=== PATIENT | female | born 1950 | race Caucasian/White ===

== ENCOUNTER 2023-02-11 13:33 | Emergency (ER) | payer MEDICARE, SELFPAY ==
[2023-02-11] VITALS (7 sets, daily range): BP systolic 161–188; BP diastolic 75–90; PULSE 55–82; RESP 16–18; TEMP 36.8–37.1; O2SAT 96–100
--- NOTE | ~2023-02-11 | XR_ITS ---
XR elbow RT 2V 02/11/2023 14:04 Indication: Right elbow pain after fall Procedure: 2 views of the right elbow Comparison: No prior studies for comparison. Findings: There is a posterior elbow dislocation there is a large radial head fracture fragment. Ther e is a fracture deformity of the posterior aspect of the capitellum. Moderate soft tissue swelling. N o definite ulnar fracture. Impression: 1: Posterior elbow dislocation with fractures of the distal aspect of the humerus and radial head. Reviewed, dictated and finalized at location A. Impression: 1: Posterior elbow dislocation with fractures of the distal aspect of the humer us and radial head.
--- NOTE | ~2023-02-11 | XR_ITS ---
XR elbow RT 2V DATE: 02/11/2023 14:51 INDICATION: Fracture/dislocation reduction TECHNIQUE: Postoperative reduction two-view examination COMPARISON: 02/11/2023 right elbow FINDINGS: There is reduction of the posterior dislocation at the elbow joint. There is a large anteri harry displaced bony fragment possibly from capitellum and/or radial head. CT imaging would be helpful for more definitive evaluation. IMPRESSION: Limited examination spelled reduction of posterior dislocation Large anterior displaced fracture fragment from the capitellum and/or radial head; consider CT for mo re definitive evaluation Reviewed, dictated and finalized at location A. IMPRESSION: Limited examination spelled reduction of posterior dislocation Large anterior displaced fracture fragment from the capitellum and/or radial he ad; consider CT for more definitive evaluation
--- NOTE | 2023-02-11 14:16 | ED.FALL ---
HPI - Fall General Chief Complaint: Fall Stated Complaint: glf - rt arm pain Time Seen by Provider: 02/11/23 13:34 History of Present Illness HPI Narrative: 72-year-old female present to the emergency department for evaluation of right elbow pain after having a ground-level fall. Patient states she fell while walking on a porch. Patient denies striking head denies loss of consciousness. Patient does have some right elbow pain Related Data Home Medications Medication Instructions Recorded Confirmed chlorthalidone 25 mg tablet 12.5 mg PO DAILY 02/06/23 02/06/23 cholecalciferol (vitamin D3) 50 50 mcg PO BID 02/06/23 02/06/23 mcg (2,000 unit) capsule (Vitamin D3) escitalopram oxalate 5 mg tablet 5 mg PO DAILY 02/06/23 02/06/23 esomeprazole magnesium 40 mg 40 mg PO DAILY 02/06/23 02/06/23 capsule,delayed release glucosamine-chondroitin 250 mg-200 1 tablet PO DAILY 02/06/23 02/06/23 mg tablet (Osteo Bi-Flex) insulin lispro 100 unit/mL See Rx Instructions .Route .COMPLEX 02/06/23 02/06/23 subcutaneous solution (Humalog U-100 Insulin) losartan 100 mg tablet 100 mg PO DAILY 02/06/23 02/06/23 nifedipine 30 mg tablet,extended 30 mg PO DAILY 02/06/23 02/06/23 release 24 hr rosuvastatin 40 mg tablet 40 mg PO DAILY 02/06/23 02/06/23 vitamin B complex 1 cap PO DAILY 02/06/23 02/06/23 vitamins A,C,B-sfec-shdrqi 2,148 1 tablet PO BID 02/06/23 02/06/23 mcg-113 mg-45 mg-17.4 mg tablet Allergies Allergy/AdvReac Type Severity Reaction Status Date / Time exenatide [From Byetta] Allergy Vomiting Verified 02/11/23 13:37 metformin Allergy Cough Verified 02/11/23 13:37 Review of Systems Review of Systems: All systems reviewed & are unremarkable except as noted in HPI and below PMFSH Social History Social History Smoking status: Never smoker Alcohol intake: current Drinks per week: 1 Substance use type: does not use Living arrangements: other Additional living arrangements comments: With Exam Narrative: APPEARANCE: Well appearing, no pain, no distress, well-nourished. HEAD: normocephalic, atraumatic. EYES: PERRLA/EOMI, conjunctivae clear. NOSE: Normal no drainage NECK: Supple. No adenopathy, no masses. RESPIRATORY: Airway patent, respirations nonlabored. Clear to auscultation bilaterally, no rales, rhonchi, wheezing. CARDIOVASCULAR: Regular rate and rhythm without murmurs rubs or gallops. ABDOMINAL: Soft, nontender, nondistended, normal bowel sounds MUSCULOSKELETAL: Right elbow deformity, tenderness to palpation. Neurovascular intact. NEURO: Alert. Cranial nerves II through XII intact. Grossly intact SKIN: Warm, dry. Normal Color Course Course Emergency Course: 72-year-old female presented ED for evaluation after having a ground-level fall. X-ray did show a radial head fracture and a right elbow dislocation. Patient was sedated with propofol and elbow was successfully reduced. Patient had confirming x-rays. Patient was placed in initial immobilizer and provided outpatient follow-up with orthopedics. All question concerns were addressed. Patient did feel improved with treatment. Vital Signs Vital signs: Vital Signs Temperature 98.7 F 02/11/23 13:32 Pulse Rate 55 L 02/11/23 13:32 Respiratory Rate 18 02/11/23 13:32 Blood Pressure 165/90 H 02/11/23 13:32 Pulse Oximetry 98 02/11/23 13:32 Oxygen Delivery Room Air 02/11/23 13:32 Temperature 98.3 F 02/11/23 14:50 Pulse Rate 64 02/11/23 15:20 Respiratory Rate 17 02/11/23 15:20 Blood Pressure 161/77 H 02/11/23 15:20 Pulse Oximetry 96 02/11/23 15:20 Oxygen Delivery Room Air 02/11/23 15:05 Oxygen Flow Rate 2 02/11/23 14:45 Procedures Orthopedic Joint Reduction Joint #1: Orthopedic Joint Reduction Time: 14:45 Time Out Performed: Yes Side: right Joint Reduction Location: elbow Analgesia: procedural sedation Pre-Procedure Neuro Vascular Exam:
[2023-02-11] MEDS: PROPOFOL IV EMULSION 200 MG/20 ML VIAL 60 MG IV PUSH (14:35)
== END 2023-02-11 15:24 | disposition home or self-care (01) ==
PROVIDERS: Emergency Provider Emergency Medicine; PCP Internal Medicine
DX: S52.121A Displaced fracture of head of right radius, initial encounter for closed fracture (principal); S42.491A Other displaced fracture of lower end of right humerus, initial encounter for closed fracture; Z79.4 Long term (current) use of insulin; W18.30XA Fall on same level, unspecified, initial encounter
CPT/HCPCS: 24600; 73070; 99285; J2704

== ENCOUNTER 2023-03-19 00:54 | Day surgery (SDC) | payer MEDICARE, SELFPAY ==
[2023-02-06 11:38] VITALS: BMI 32.8
--- NOTE | 2023-03-05 14:59 | PC.NURSE ---
verified with pt new date and time of procedure. pt denies any changes in medications or medical history since last PAT call. pt stated that she is to have surgery on her arm this week and will speak with him to make sure he is ok with her having the Colonoscopy performed.
--- NOTE | 2023-03-16 16:11 | PM.HPGS ---
History of Present Illness History of Present Illness Consent: Risks, benefits, and alternatives have been discussed and questions answered. Patient agrees to proceed with procedure. Chief complaint: Hx of colon polyps Narrative: Kirsten Best is a 72 year old female Who was referred for colon cancer screening. She has a history of polyps. Her primary care provider has referred her several times in last 15 months. for family members on her father's side had colon cancer, 3 of which have perished. Review of Systems Review of Systems: All systems reviewed & are unremarkable except as noted in HPI and below PMFSH Social History Social History Smoking status: Never smoker Alcohol intake: current Drinks per week: 1 Substance use type: does not use Living arrangements: other Additional living arrangements comments: With Meds Home Medications and Allergies Home Medications Medication Instructions Recorded Confirmed Type chlorthalidone 25 mg tablet 12.5 mg PO DAILY 02/06/23 03/19/23 History cholecalciferol (vitamin D3) 50 50 mcg PO BID 02/06/23 03/19/23 History mcg (2,000 unit) capsule (Vitamin D3) escitalopram oxalate 5 mg tablet 5 mg PO DAILY 02/06/23 03/19/23 History esomeprazole magnesium 40 mg 40 mg PO DAILY 02/06/23 03/19/23 History capsule,delayed release glucosamine-chondroitin 250 mg-200 1 tablet PO DAILY 02/06/23 03/19/23 History mg tablet (Osteo Bi-Flex) insulin lispro 100 unit/mL See Rx Instructions .Route .COMPLEX 02/06/23 03/19/23 History subcutaneous solution (Humalog U-100 Insulin) losartan 100 mg tablet 100 mg PO DAILY 02/06/23 03/19/23 History nifedipine 30 mg tablet,extended 30 mg PO DAILY 02/06/23 03/19/23 History release 24 hr rosuvastatin 40 mg tablet 40 mg PO DAILY 02/06/23 03/19/23 History vitamin B complex 1 cap PO DAILY 02/06/23 03/19/23 History vitamins A,C,H-aaba-sqcytf 2,148 1 tablet PO BID 02/06/23 03/19/23 History mcg-113 mg-45 mg-17.4 mg tablet Allergies Allergy/AdvReac Type Severity Reaction Status Date / Time exenatide [From Byetta] Allergy Vomiting Verified 03/19/23 07:59 metformin Allergy Cough Verified 03/19/23 07:59 Exam Const: General: alert Orientation/consciousness: patient oriented x3 Resp: Auscultation: clear to auscultation bilaterally Cardio: Rate: regular rate Rhythm: regular rhythm GI: GI Palp: Yes Soft to palpation and No Tenderness to palpation present (GI) Neuro: General: patient oriented x3 Assessment and Plan Assessment and plan (1) Colon cancer screening: Code(s): Z12.11 - Encounter for screening for malignant neoplasm of colon Status: Acute Assessment and Plan: Colonoscopy with possible biopsy or polypectomy or cautery or injection of substances.
--- NOTE | 2023-03-19 08:02 | SUR.PREOP ---
blood glucose 229 per pt dexcom
[2023-03-19 08:03] VITALS: BP 156/79; PULSE 85; RESP 18; TEMP 36.2; O2SAT 99
[2023-03-19] MEDS: LACTATED RINGERS 1,000 ML 150 ML IV CONT (08:12)
--- NOTE | 2023-03-19 08:43 | WPDANESEPPF ---
Anes - Initial Pre Proc Eval Procedure: Operation Date: 03/19/23 09:00 Proposed Procedures p Colonoscopy - Yousuf Andino MD Date/Time: 03/19/23 08:43 Surgeon: Yousuf Andino MD Pre Op Diagnosis: Hx of colon polyps Patient Data Age: 72 Gender: F Height: 1.73 m Weight: 96 kg Last Vital Signs Temp 97.1 F L 03/19/23 08:03 Pulse 85 03/19/23 08:03 Resp 18 03/19/23 08:03 BP 156/79 H 03/19/23 08:03 Pulse Ox 99 03/19/23 08:03 O2 Del Method Room Air 03/19/23 08:03 Allergies Allergy/AdvReac Type Severity Reaction Status Date / Time exenatide [From Byetta] Allergy Vomiting Verified 03/19/23 07:59 metformin Allergy Cough Verified 03/19/23 07:59 Home Medications Medication Instructions Recorded Confirmed Type chlorthalidone 25 mg tablet 12.5 mg PO DAILY 02/06/23 03/19/23 History cholecalciferol (vitamin D3) 50 50 mcg PO BID 02/06/23 03/19/23 History mcg (2,000 unit) capsule (Vitamin D3) escitalopram oxalate 5 mg tablet 5 mg PO DAILY 02/06/23 03/19/23 History esomeprazole magnesium 40 mg 40 mg PO DAILY 02/06/23 03/19/23 History capsule,delayed release glucosamine-chondroitin 250 mg-200 1 tablet PO DAILY 02/06/23 03/19/23 History mg tablet (Osteo Bi-Flex) insulin lispro 100 unit/mL See Rx Instructions .Route .COMPLEX 02/06/23 03/19/23 History subcutaneous solution (Humalog U-100 Insulin) losartan 100 mg tablet 100 mg PO DAILY 02/06/23 03/19/23 History nifedipine 30 mg tablet,extended 30 mg PO DAILY 02/06/23 03/19/23 History release 24 hr rosuvastatin 40 mg tablet 40 mg PO DAILY 02/06/23 03/19/23 History vitamin B complex 1 cap PO DAILY 02/06/23 03/19/23 History vitamins A,C,E-wsfq-ttebld 2,148 1 tablet PO BID 02/06/23 03/19/23 History mcg-113 mg-45 mg-17.4 mg tablet Patient hx anesthesia problems: none Family hx anesthesia problems: none Results Review: All pre-operative results and documents have been reviewed as part of the pre-operative evaluation. [facility] Social History Social History Smoking status: Never smoker Alcohol intake: current Drinks per week: 1 Substance use type: does not use Living arrangements: other Additional living arrangements comments: With Julien Montesinos Final PreProcedure Day of Procedure 03/19/23 08:43 Patient weight: obese Heart: regular rate and rhythm Lungs: clear to auscultation Airway: Mallampati scale class II Neurological: alert and oriented Last oral intake: >/= 8 hours ASA classification: III Emergent: no Anesthetic plan: proceed Anesthesia type and monitoring: general GIVS and standard monitoring Results Review: All pre-operative results and documents have been reviewed as part of the pre-operative evaluation. Informed Consent: The patient's anesthetic plan and its attendant risks and benefits were discussed with the patient/family/POA. Questions were solicited and answers provided to the satisfaction of the patient/family/POA.
[2023-03-19] MEDS: SIMETHICONE ORAL SUSPENSION 20 MG/0.3 ML 30 ML BOTTLE 0.6 ML IRRIGATION (09:03)
[2023-03-19 09:09] VITALS: BP 114/56; PULSE 60; RESP 19; O2SAT 95
[2023-03-19 09:19] VITALS: BP 110/54; PULSE 56; RESP 22; O2SAT 97
[2023-03-19 09:27] LABS: Glucose Point of Care 180 mg/dl (65-105)
[2023-03-19 09:29] VITALS: BP 124/64; PULSE 64; RESP 19; O2SAT 97
== END 2023-03-19 09:50 | disposition home or self-care (01) ==
PROVIDERS: PCP Internal Medicine; Visit Provider Internal Medicine Gastroenterology
PROC: 0DJD8ZZ Inspection of Lower Intestinal Tract, Via Natural or Artificial Opening Endoscopic (ICD-10-PCS; CPT 45378; principal; 2023-03-19 09:00)
DX: Z12.11 Encounter for screening for malignant neoplasm of colon (principal); D12.2 Benign neoplasm of ascending colon; K64.8 Other hemorrhoids; Z80.0 Family history of malignant neoplasm of digestive organs
CPT/HCPCS: 45385; 82948; 88305; J2704; J7120

== ENCOUNTER 2023-12-04 12:55 | Outpatient (CLI) | payer MEDICARE, SELFPAY ==
--- NOTE | ~2023-12-04 | US_ITS ---
EXAMINATION: US carotid duplex BI DATE: 12/04/2023 13:48 INDICATION: Carotid bruit. TECHNIQUE: Grayscale, color Doppler, and pulsed Doppler images of the cervical carotid arteries were obtained. The degree of vessel stenosis is placed in one of the following categories: normal, <50%, 5 0-69%, >=70% but less than near-occlusion, near-occlusion, or total occlusion. Note that percent sten osis relative to normal distal artery lumen diameter is indirectly measured from velocity measurement s as described by Yoandy, et al. Radiology 2003; [id number]. COMPARISON: None. FINDINGS: RIGHT: The right common carotid artery (CCA) peak systolic velocity (PSV) is 86 cm/s. The right internal car otid artery (ICA) PSV is 120 cm/s. The right ICA end-diastolic velocity (EDV) is 18 cm/s. The right I CA/CCA PSV ratio is 1.4. Grayscale and color Doppler images yield an estimate of <50% diameter reduct ion from plaque in the ICA. There is antegrade flow in the right vertebral artery. LEFT: The left CCA PSV is 78 cm/s. The left ICA PSV is 67 cm/s. The left ICA EDV is 20 cm/s. The left ICA/C CA PSV ratio is 0.9. Grayscale and color Doppler images yield an estimate of <50% diameter reduction from plaque in the ICA. There is antegrade flow in the left vertebral artery. IMPRESSION: 1. <50% stenosis in the right internal carotid artery. 2. <50% stenosis in the left internal carotid artery. Reviewed, dictated and finalized at location A.
== END 2023-12-04 12:56 | disposition home or self-care (01) ==
PROVIDERS: PCP Internal Medicine; Visit Provider Internal Medicine
DX: R09.89 Other specified symptoms and signs involving the circulatory and respiratory systems (principal); I65.23 Occlusion and stenosis of bilateral carotid arteries
CPT/HCPCS: 93880